=== PATIENT | male | born 1990 | race Caucasian/White ===

== ENCOUNTER 2024-06-25 20:44 | Emergency (ER) | payer SELFPAY ==
[2024-06-25 20:45] VITALS: BP 103/66; PULSE 95; RESP 16; TEMP 36.8; O2SAT 93; BMI 25.9
--- NOTE | 2024-06-25 20:55 | W.ED.EXTPRO ---
HPI - Extremity Problem General: Chief complaint: Extremity Injury, Lower Stated complaint: left knee pain Time Seen by Provider: 06/25/24 20:47 Source: patient Mode of arrival: ambulatory (With the help of crutches) Limitations: no limitations History of Present Illness: Patient is a 33-year-old male presents to ED today for evaluation of swelling that he noticed to his left knee earlier today. Patient states he just finished with [employer] and was at home in the shower when he began noticing anterior swelling to the left knee. Patient denies remembering any specific injury during his workout. He does state that they do spend a lot of time on their knees with the martial arts maneuvers. Patient is not noticed any redness or swelling. He is ambulatory here with the help of crutches. He maintains full range of motion of the knee but states it does feel tight with full extension. MD Complaint: joint swelling and joint pain Onset (ago): hour(s) Pain Consistency: constant Location: left and knee Radiation: none Relieving factors: immobilization Exacerbating factors: range of motion Associated symptoms: Reports no associated symptoms; Deny fever(s) Related Data Home Medications Medication Instructions Recorded Confirmed mupirocin 2 % topical ointment topical 06/03/23 05/20/24 Previous Rx's Medication Instructions Recorded ketoconazole 2 % topical cream 1 applic topical BID #15 grams 06/21/23 fluoxetine 20 mg tablet 20 mg PO DAILY #90 tabs 05/20/24 Allergies Allergy/AdvReac Type Severity Reaction Status Date / Time No Known Allergies Allergy Verified 05/20/24 13:19 Review of Systems Const: Denies: fever(s) Musc: Reports: joint pain and joint swelling; Denies: joint redness, joint warmth or limited range of motion Neuro: Denies: numbness in extremities or sensory changes PFSH ED PFSH: Medical History Mild depression Social anxiety disorder Impetigo Folliculitis of axilla Surgical History H/O left knee surgery apr 2023 in PT for this. Hx of appendectomy Family History Grandmother Cancer colon cancer Other CAD (coronary artery disease) Diabetes Denies family history of Stroke Social History Smoking and tobacco/nicotine status: never used tobacco/nicotine Alcohol intake: never Substance/Drug Use: never Marital status: Number of children: 2 Current occupational status: employed Physical Exam Const: COMMON NORMALS: no acute distress, average body habitus, patient oriented x3, no limitations, healthy appearing, alert and well nourished Extremity: LEFT LOWER EXTREMITY: Yes knee joint Left knee: Yes inspection (obvious deformity swelling localized anteriorly infrapatellar), Yes ROM (normal but states it feels tight) and Yes neurovascular exam (normal) Neuro: COMMON NORMALS: patient oriented x3, moves all extremities, no focal motor deficits and no sensory deficits noted SENSORIUM/ORIENTATION: Yes alert Course Vital Signs: Vital signs: Vital Signs Temperature 98.2 F 06/25/24 20:45 Pulse Rate 92 06/25/24 21:23 Respiratory Rate 16 06/25/24 20:45 Blood Pressure 108/62 06/25/24 21:23 Pulse Oximetry 95 06/25/24 21:23 Oxygen Delivery Me thod Room Air 06/25/24 20:45 MDM - Extremity (Nontraumatic) Medical Decision Making Patient has localized swelling to the anterior left knee joint infrapatellar region. This most likely represents some type of traumatic bursitis from him being on his knees or coming down hard on his knee during jujitsu/MMA. I do not have any concern for fracture. We did discussed XR imaging but patient declines. Less likely internal derangement of the knee. Spoke about continuing to utilize crutches, ABEL wrap/compression, elevation, ice, and follow-up with primary care in 2 weeks. Medical Records I reviewed the patient's medical records. No radiology studies performed this visit Discharge Plan Discharge Patient Disposition: Home Clinical Impression: Infrapatellar bursitis of left knee Condition: Stable Prescriptions: No Action mupirocin 2 % ointment topical fluoxetine 20 mg tablet 20 mg PO DAILY Qty: 90 3RF ketoconazole 2 % cream 1 applic topical BID Qty: 15 0RF Rx Instructions: for 14 days Discharge Orders: Discharge ED (Routine); Ordered 06/25/24 Ordered By: Anita Sultana Referrals: Heriberto Jauregui NP [Primary Care Provider] - Patient Instructions: Knee Bursitis (ED) Activity Restrictions/Additional Instructions: As we discussed, you may utilize your crutches as needed for weight bearing. Apply Abel wrap, elevate, ice, anti-inflammatories. Please follow-up with primary care in 2 weeks for continued pain. 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
[2024-06-25 21:23] VITALS: BP 108/62; PULSE 92; O2SAT 95
== END 2024-06-25 21:25 | disposition home or self-care (01) ==
PROVIDERS: Emergency Provider Physician Assistant; PCP Clinical Nurse Specialist Adult Health
DX: M70.52 Other bursitis of knee, left knee (principal)
CPT/HCPCS: 99281

== ENCOUNTER 2024-07-29 11:54 | Outpatient (CLI) | payer OTHER, SELFPAY ==
--- NOTE | 2024-07-29 12:01 | XR_ITS ---
WS: [id number] XR knee LT 3V* [id number] REASON FOR EXAM: M23.92 - Unspecified internal derangement of left knee FINDINGS: No acute fracture or focal bone lesion. There is mild narrowing of the medial knee joint space with minimal subchondral sclerosis. The lateral knee joint space is intact and well preserved. Patellofemoral joint space is intact and well preserved. Minimal subchondral sclerosis of the patella. XR/XR knee LT 3V* [id number] IMPRESSION: No acute abnormality. Minimal to mild osteoarthritis.
== END 2024-07-29 11:55 | disposition home or self-care (01) ==
PROVIDERS: PCP Clinical Nurse Specialist Adult Health; Visit Provider Clinical Nurse Specialist Adult Health
DX: M23.92 Unspecified internal derangement of left knee (principal); M17.12 Unilateral primary osteoarthritis, left knee; R93.6 Abnormal findings on diagnostic imaging of limbs
CPT/HCPCS: 73562

== ENCOUNTER → 2025-03-08 09:34 | Outpatient (BNVA) | payer OTHER, SELFPAY | PROVIDERS: PCP Clinical Nurse Specialist Adult Health; Visit Provider Clinical Nurse Specialist Adult Health | DX: F32.A Depression, unspecified (principal); R53.83 Other fatigue | CPT/HCPCS: 80053; 82306; 82607; 84403; 84443; 85025 ==